=== PATIENT | female | born 1975 | race Two or more races ===

== ENCOUNTER → 2018-09-04 | Outpatient (CLI) | payer BC ==
--- NOTE | 2018-09-06 15:28 | MM ---
Reason for exam: clinical finding. Last mammogram was performed 5 years and 3 months ago. History: Patient had first child at age 37. Took hormonal contraceptives for 5 years. Taking progesterone for 1 year. Indicated problem(s): palpable abnormality in the left breast. MG Screening Mammo w CAD Bilateral CC and MLO view(s) were taken. Prior study comparison: June 14, 2013, bilateral digital screening mammo w/CAD. The breast tissue is extremely dense which could obscure a lesion on mammography. There is a benign-appearing round calcification in the right upper outer breast. No discrete abnormality. ASSESSMENT: Incomplete: need additional imaging evaluation, BI-RAD 0 RECOMMENDATION: Ultrasound of the left breast. Ultrasound the axillary palpable by patient.
== END | disposition home or self-care (01) ==
LOC: RADMAMWWP 09:54
PROVIDERS: ATTEND Obstetrics & Gynecology
DX: Z12.31 Encounter for screening mammogram for malignant neoplasm of breast (principal)
CPT/HCPCS: 77067

== ENCOUNTER → 2018-09-14 | Outpatient (CLI) | payer BC ==
--- NOTE | 2018-09-16 12:16 | USB ---
Reason for exam: additional evaluation requested from abnormal screening. History: Patient had first child at age 37. Took hormonal contraceptives for 5 years. Taking progesterone for 1 year. Indicated problem(s): palpable abnormality in the left breast. Physical Findings: Nurse Summary: There is a large left axillary abscess that is draining/firm. US Breast Workup Limited LT Left limited breast ultrasound including focal area of concern, retroareolar and axilla demonstrates a 1.2 x 0.9 x 0.8 cm axillary node #1 mixed , and a 0.8 x 1.0 x 0.8 cm axillary node #2 hypoechoic, and the palpable axillary lesion 3.3 x 2.8 x 1.0 oval irregular hypoechoic, that corresponds with the abscess. These results were verbally communicated with the patient and result sheet given to the patient on 09/14/18. ASSESSMENT: Probably benign, BI-RAD 3 RECOMMENDATION: Ultrasound of the left breast in 3 months.
== END | disposition home or self-care (01) ==
LOC: RADUSWWP 08:23
PROVIDERS: ATTEND Obstetrics & Gynecology
DX: R92.8 Other abnormal and inconclusive findings on diagnostic imaging of breast (principal)

== ENCOUNTER → 2023-07-04 | Outpatient (CLI) | payer BC ==
--- NOTE | 2023-07-05 20:14 | MM ---
Reason for Exam: Screening (asymptomatic). Last mammogram was performed 4 year(s) and 10 month(s) ago. Patient History: Menarche at age 14. First Full-Term at age 37. Late child-bearing (after 30). Premenopausal. Currently using Progesterone, for 1 year. Patient used Hormonal Contraceptives for 5 years. Last menstrual period: 06/11/2023 Risk Values: Leanne 5 year model risk: 1.1%. NCI Lifetime model risk: 13.0%. Prior Study Comparison: 06/14/2013 Bilateral Screening Mammogram, [facility]. 09/04/2018 Bilateral Screening Mammogram, [facility]. Tissue Density: The breast tissue is heterogeneously dense. This may lower the sensitivity of mammography. Findings: Analyzed By CAD. There is no suspicious group of microcalcifications or new suspicious mass in either breast. Overall Assessment: Negative, BI-RAD 1 Management: Screening Mammogram of both breasts in 1 year. . Patient should continue monthly self-breast exams. A clinical breast exam by your physician is recommended on an annual basis. This exam should not preclude additional follow-up of suspicious palpable abnormalities. Note on Leanne scores and lifetime risk: 1. A Leanne score greater than 3% is considered moderate risk. If this is the case, consider specialist referral to assess eligibility for a risk reducing agent. 2. If overall lifetime risk for the development of breast cancer is 20% or higher, the patient may qualify for future screening with alternating mammogram and breast MRI. Electronically signed and approved by: Miriam Fuentes M.D. Radiologist
== END | disposition home or self-care (01) ==
LOC: RADMAMWWP 15:40
PROVIDERS: ATTEND Obstetrics & Gynecology
DX: Z12.31 Encounter for screening mammogram for malignant neoplasm of breast (principal)
CPT/HCPCS: 77067

== ENCOUNTER → 2024-07-31 | Outpatient (CLI) | payer BC ==
--- NOTE | 2024-08-03 23:23 | MM ---
Reason for Exam: Screening (asymptomatic). Last mammogram was performed 1 year(s) and 1 month(s) ago. Patient History: Menarche at age 14. First Full-Term at age 37. Late child-bearing (after 30). Premenopausal. Currently using Progesterone, for 1 year. Patient used Hormonal Contraceptives for 5 years. Risk Values: Leanne 5 year model risk: 1.2%. NCI Lifetime model risk: 12.8%. Prior Study Comparison: 06/14/2013 Bilateral Screening Mammogram, [facility]. 09/04/2018 Bilateral Screening Mammogram, [facility]. 07/04/2023 Bilateral MG screening mammo w CAD, [facility]. Tissue Density: The breasts are heterogeneously dense, which may obscure small masses. Findings: Analyzed By CAD. The pattern is symmetrical. No significant interval change. No suspicious groups of microcalcifications, spiculated or lobular masses, architectural distortion or other secondary signs of malignancy are mammographically apparent. Overall Assessment: Benign, BI-RAD 2 Management: Screening Mammogram of both breasts in 1 year. A negative mammogram report should not preclude additional follow up of suspicious palpable abnormalities. Patient should continue monthly self breast exam. A clinical breast exam by your physician is recommended on an annual basis and results should be correlated with mammographic findings. Note on Leanne scores and lifetime risk: 1. A Leanne score greater than 3% is considered moderate risk. If this is the case, consider specialist referral to assess eligibility for a risk reducing agent. 2. If overall lifetime risk for the development of breast cancer is 20% or higher, the patient may qualify for future screening with alternating mammogram and breast MRI. [facility], , 08/03/2024 11:19 PM. Electronically signed and approved by: Kip Lee D.O. Radiologis
== END | disposition home or self-care (01) ==
LOC: RADMAMWWP 06:51
PROVIDERS: ATTEND Obstetrics & Gynecology
DX: Z12.31 Encounter for screening mammogram for malignant neoplasm of breast (principal); R92.333 Mammographic heterogeneous density, bilateral breasts; Z92.0 Personal history of contraception
CPT/HCPCS: 77067